=== PATIENT | female | born 1965 | race Caucasian/White ===

== ENCOUNTER 2017-08-13 09:41 | Day surgery (SDC) | payer BC ==
[~2017-08-13 09:41] MED LIST: CEFAZOLIN 2 GM/50 ML (PMX) 50 ML IVPB; TRANEXAMIC ACID 1,000 MG in DEXTROSE 5% 100 ML IVPB
[2017-08-13] MEDS: DEXAMETHASONE 1 MG TAB PO (11:05)
[2017-08-13] MEDS ORDERED: ROPIVACAINE 0.5 % 30 ML VIAL (12:41)
[2017-08-13] MEDS ORDERED: FENTAnyl 50 MCG/ML VIAL ×2 (12:41→13:54)
[2017-08-13] MEDS ORDERED: MIDAZOLAM 1 MG/ML 2 ML INJ (12:41)
[2017-08-13] MEDS ORDERED: LIDOCAINE 2% (SDV) 5 ML INJ (14:18)
[2017-08-13] MEDS ORDERED: PROPOFOL 20 ML (14:18)
[2017-08-13] MEDS ORDERED: SUCCINYLCHOLINE CHLORIDE 100 MG/5 ML SYG IV (14:18)
[2017-08-13] MEDS ORDERED: ONDANSETRON 4 MG INJ (14:27)
[2017-08-13] MEDS ORDERED: DEXAMETHASONE 4 MG/ML 1 ML INJ (14:27)
[2017-08-13] MEDS ORDERED: EPHEDrine SULFATE 50 MG/5 ML SYG (14:29)
[2017-08-13] MEDS ORDERED: FAMOTIDINE 20 MG INJ (14:29)
[2017-08-13] MEDS ORDERED: ACETAMINOPHEN 1000MG/100ML IV 100 ML (14:36)
[2017-08-13] MEDS ORDERED: MEPERIDINE 25 MG INJ IV (15:00)
[2017-08-13] MEDS ORDERED: HYDROmorphONE (0.2 MG/ML) 10ML SYG IV ×2 (15:00)
[2017-08-13] MEDS ORDERED: PROCHLORPERAZINE 10 MG INJ IV (15:00)
[2017-08-13] MEDS ORDERED: ONDANSETRON 4 MG INJ IV (15:00)
[2017-08-13] MEDS ORDERED: FENTAnyl 50 MCG/ML VIAL IV ×3 (15:00)
[2017-08-13] MEDS ORDERED: DIPHENHYDRAMINE 50 MG INJ IV (15:00)
[2017-08-13] MEDS: HYDROmorphONE (0.2 MG/ML) 10ML SYG IV (16:23)
[2017-08-13] MEDS: OXYCODONE/ACETAMINOPHEN (5/325) TAB PO (16:24)
== END 2017-08-13 17:39 | disposition home or self-care (01) ==
LOC: SDS 09:41
DX: M13.811 Other specified arthritis, right shoulder (principal); S46.811A Strain of other muscles, fascia and tendons at shoulder and upper arm level, right arm, initial encounter; X58.XXXA Exposure to other specified factors, initial encounter
CPT/HCPCS: 29823

== ENCOUNTER 2018-07-30 06:19 | Day surgery (SDC) | payer BC ==
[~2018-07-30 06:19] MED LIST changes: +SOD CHLORIDE 0.9% 1,000 ML IV; -TRANEXAMIC ACID 1,000 MG in DEXTROSE 5% 100 ML IVPB
[2018-07-30] MEDS ORDERED: ACETAMINOPHEN 500 MG TAB PO (10:00)
[2018-07-30] MEDS ORDERED: LABETALOL HCL 20MG INJ IV (12:00)
[2018-07-30] MEDS ORDERED: morphine (1 MG/ML) 10ML SYRINGE IV ×2 (12:00)
[2018-07-30] MEDS ORDERED: DIPHENHYDRAMINE 50 MG INJ IV (12:00)
[2018-07-30] MEDS ORDERED: FENTAnyl 50 MCG/ML VIAL IV ×2 (12:00)
[2018-07-30] MEDS ORDERED: OXYCODONE/ACETAMINOPHEN (5/325) TAB PO ×2 (12:00)
[2018-07-30] MEDS ORDERED: ONDANSETRON 4 MG INJ IV (12:00)
[2018-07-30] MEDS ORDERED: MEPERIDINE 25 MG INJ IV (12:00)
[2018-07-30] MEDS ORDERED: ALBUTEROL 0.083% (NEB) 2.5 MG/3 ML AMP HHN (12:00)
[2018-07-30] MEDS ORDERED: CEFAZOLIN 1 GM INJ (12:01)
[2018-07-30] MEDS ORDERED: FAMOTIDINE 20 MG INJ (12:01)
[2018-07-30] MEDS ORDERED: MIDAZOLAM 1 MG/ML 2 ML INJ (12:01)
[2018-07-30] MEDS ORDERED: ONDANSETRON 4 MG INJ (12:01)
[2018-07-30] MEDS ORDERED: FENTAnyl 50 MCG/ML VIAL (12:01)
[2018-07-30] MEDS ORDERED: LIDOCAINE 2% (SDV) 5 ML INJ (12:01)
[2018-07-30] MEDS ORDERED: EPHEDrine SULFATE 50 MG/5 ML SYG (12:14)
[2018-07-30] MEDS: LIDOCAINE 1% (MPF) 30 ML INJ (12:43)
[2018-07-30] MEDS: HYDROmorphONE 1 MG/5 ML IV SYRINGE IV ×3 (13:13→13:31)
[2018-07-31] MEDS ORDERED: INFLUENZA VIRUS VACCINE 0.5 ML (DISPENSING) IM* (09:00)
== END 2018-07-30 15:20 | disposition home or self-care (01) ==
LOC: SDS 06:19
DX: D05.11 Intraductal carcinoma in situ of right breast (principal)
CPT/HCPCS: 19101; 71045; 88307; 90686; 93005